=== PATIENT | female | born 1975 | race Two or more races ===

== ENCOUNTER 2024-08-12 09:01 | Outpatient (RCR) | payer OTHER, SELFPAY ==
--- NOTE | 2024-08-12 12:32 | CTCCONSULT_ITS ---
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 Referring physician. Ronny Malagon MD Reason for consultation. Patient with DCIS right breast with microinvasion status post right breast tylectomy right sentinel lymph node biopsy and doughnut mammoplasty referred to the cancer treatment center. 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 This revealed DCIS. ER/WA 90% positive. Patient underwent right breast tylectomy right sentinel lymph node biopsy and doing m ammoplasty performed by Dr. Ronny Malagon 05/26/2024. Right breast and additional margins obtained revea led low to intermediate nuclear grade ductal in situ at least 1.1 cm with associated microcalcificati ons. There was no invasive carcinoma identified. Final margins widely negative. 2 sentinel node ly mph nodes negative for mets. ER/WA positive.` [id number] patient now referred for adjuvant therapy at the cancer center. Patient had DCISonRT performed which gave her a score of 9.2 which is elevated r isk with 42% risk with either DCIS plus invasive in 10 years with surgery alone versus 15% with posto p radiation. Past Medical History: Denies other medical conditions Meds none Allergies none Family history. Maternal aunt age 50 and maternal cousin age 40 with breast CA both alive. 1 nephew of liver CA. 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 Review of Systems: Patient has some difficulty hearing ringing in the ears Physical Exam: General: Well-appearing lady no acute distress HEENT: Atraumatic no cephalic extraocular is intact no oral lesion no cervical or supraclavicular katarzyna nopathy CV: Right breast has well-healing surgical changes in the superior portion of breast. Lungs clear to auscultation heart regular rate and rhythm ABD: Soft and organomegaly or tenderness EXT: No signs of clubbing or edema Assessment:1. [id number] ER/WA positive right breast CA status post right breast tylectomy and 2 sentine l node removal 05/26/2024 2.DCISonRT reveals a high 9.2 indicating benefit from postop XRT. 3. Spoke to patient about 3-week radiation using modern 3D method with possible E boost to primary s ite depending on skin reaction. 4. Side effects explained and patient told to avoid during treatment 5. Dr. Webber medical oncologist will see patient shortly. 6. Thank you much for allowing me to evaluate and manage this patient Cc: Suzanne Malagon MD Electronically signed by: Bjorn Brown MD, DABR 08/12/2024 12:30 PM
--- NOTE | 2024-08-12 12:39 | CTCTXPLN_ITS ---
[facility] [place] [address] [place], [place] [address] Physician Clinical Treatment Planning Note Date of Service: 08/12/2024 Name: YING CAIN : 1975 The patient has agreed to proceed with Radiation therapy. Tests and supporting medical records were interpreted to assist in defining the tumor location and extent of disease. Further imaging will be necessary to contour and delineate the volume to which the XRT will be provided. A. Treatment Intent: Curative B. Modality: 15 MV C. Requested Technique: 3D D. Treatment Site: Right breast E. Critical structures to be contoured on plan: F. In order to accomplish this plan, I am ordering/Prescribing the followin. Simulations (s) will be performed to accomplish a reproducible treatment position, to determine op timal treatment portals/beam arrangements, to design beam modifying devices and verify treatment port als on patient prior to the commencement of Radiation Therapy. Right breast 2. Devices; for immobilization and beam shaping: Vac-Laura 3. CT Guidance for placement of XRT garcia Scan area: 4. Portal images Frequency: 5. Invivo transit dose measurement once per week on all VMAT patients. 6. Special Physics Consult Requested for: 7. Other requests: G. Dose Objectives: Curative Electronically signed by: Bjorn Brown M.D. 08/12/2024 12:36 PM
--- NOTE | 2024-08-12 12:41 | CTCTXPLNST_ITS ---
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 Pt Treatment Intent: curative palliative other: Stage: Procedure CPT # Ordered Spec. Procedure 36604 Holly Complex (set-up) 91865 R breast/ E boost 2 Holly Simple 48776 1 IMRT Plan 66155 MLC Devices VMAT 21889 Holly 3 D 28031 1 TRTMT dev Complex 17183 [place]lock/2 F/E boost 4 TRTMT dev simple 66322 Basic Mihir 48782 5 Special Dosimetry 93620 Spec Physics 53263 Port Films 78752 3 SRS Cranial/1FX 94589 SBR 5 FX or Less /ex: 5 = 5 fx 47055 IMRT Simple 93319 IMRT Complex 16655 IGRT 75878 Rad del com 6-10 27558 Rad del com 11- 03243 5005 20 Cont Med Physics 10144 4 Treatment Planning 45715 1 Rad del com 20 mev 09947 Rad del inter 01-27 71754 Rad del inter 07-08 31458 Rad del simple 6- 56157 Rad del simple 07-08 39674 Special Port Plan 03512 TRTMT dev inter 03083 Isodose Complex 48803 Isodose simple 02560 Resp Motion Mgmt Simulation 04255 Placement of Fiducial Markers 39262 Electronically Signed By: Bjorn Brown MD, DANIR 08/12/2024 12:38 PM
== END 2024-08-19 23:59 | disposition home or self-care (01) ==
LOC: SCTC 09:01
PROVIDERS: PCP Family Medicine; Referring Provider Surgery; Visit Provider Radiology Therapeutic Radiology
DX: D05.11 Intraductal carcinoma in situ of right breast (principal); Z17.0 Estrogen receptor positive status [ER+]; Z17.21 Progesterone receptor positive status; Z90.11 Acquired absence of right breast and nipple
CPT/HCPCS: 99213; G0463

== ENCOUNTER 2024-09-19 07:40 | Outpatient (RCR) | payer OTHER, SELFPAY ==
--- NOTE | 2024-09-09 11:41 | CTCSNOTE_ITS ---
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 (C) CT slices included right breast (D) 3D Will be needed for maximum sparing of adjacent normal critical structures. (E) Patient tolerated the simulation well and left the room in good condition. Electronically signed by: Bjorn Brown MD, DABR 09/09/2024 11:39 AM
--- NOTE | 2024-09-16 10:49 | CTCCONSULT_ITS ---
Patient: YING IGNACIO : 1975 MR#: [id number] Page 2 of 2 CONSULTATION NOTE DATE OF CONSULTATION: 09/16/2024 NAME: YING IGNACIO ACCOUNT: [id number] : 1975 AGE: 49 REFERRING PHYSICIAN: Suzanne Castro MD PRIMARY PHYSICIAN: Suzanne Castro MD REASON FOR VISIT: Establishing care for DCIS ONCOLOGY HISTORY: DIAGNOSIS: Intraductal carcinoma in situ of right breast [ICD10] D05.11 DATE OF DIAGNOSIS: 04/30/2024 STAGE/TNM: Stage 0 TREATMENT HISTORY: No treatment Care?Plan Start?Date Cycle Day Intent HISTORY OF PRESENT ILLNESS: 49-year-old female with a new diagnosis of DCIS. Patient have 3 children. Patient is sexually active and do not want to start treatment where she has to use contraceptive. Patient is trying to get . Patient exercises every day. No family or personal history of cancer before this diagnosis of DCIS. OTHER MEDICAL HISTORY/CONDITIONS: DCIS?Right?breast?-?DX?05/26/24 COVID Right breast tylectomy with u/s guideed wire localization; right sentinel lymph node biopsy; donut mammoplasty - 05/26/24 d and c - Age 23 FAMILY HISTORY: Children:?Nephew?-?Liver?-?dx?age?3 Cancer History:?Mat aunt - breast - dx 45; Mat cousin - breast - dx 39 SOCIAL HISTORY: Occupational?History:?[employer] Education?Level:?Attended College, did not graduate Marital?Status:? 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 Collagen Skin Renewal - 30-833.3 mg 1 tab Daily 2. CoQ10 - 10 mg 1 Capsule Daily 3. folic acid - 0.8 mg 1 Capsule Daily 4. 1 + 1 - 65-1 mg 1 tab Daily 5. turmeric - 400 mg 1 Capsule Daily 6. vitamin E - 400 unit 1 tab Daily?Palabra Meds? Medications Last Reconciled by Maricel Gonzalez RN on 09/16/2024 ALLERGIES: No Known Drug Allergies REVIEW OF SYSTEMS: A complete 14-point review of systems was performed and is negative except as noted in interval history. PHYSICAL EXAMINATION: VITAL SIGNS: Temperature?97.5, B/P?131/83, Height?64?inches, Oxygen?Saturation?97% Weight?150?lbs PAIN: 0 - No pain ECOG Performance Status: 0 - Asymptomatic and fully active GENERAL APPEARANCE: Appears well, in no apparent distress, appropriately interactive. HEENT: Normocephalic, no temporal wasting, normal conjunctiva, no scleral icterus, normal hearing, lips without lesions, neck normal range of motion. CARDIOVASCULAR: Not assessed. PULMONARY: Normal respiratory effort, no respiratory distress or use of accessory muscles, speaking in full sentences, no tachypnea. EXTREMITIES: No pedal edema or cyanosis. SKIN: Normal skin appearance. NEUROLOGIC: Alert and oriented x4. PSHYCHIATRIC: Appropriate affect, mood normal, behavior normal, intact thought and speech. Both breast without any palpable lesions. Surgical site clean bilateral axilla without any lesions. Noted black spots on left breast. Patient is requesting dermatology follow-up for that LABORATORY DATA: I have personally reviewed and interpreted each of Ms. Ignacio?s relevant lab tests, abnormal findings are below: Date ASSESSMENT/PLAN: #1 right breast DCIS Patient with a diagnosis of DCIS involving 10% of biopsy tissue. It was grade 2 ER/AZ positive Patient do not want to take antiendocrine therapy with the tamoxifen or anastrozole or ovarian suppression She wants to continue her active sex life and want to get Discussed effects of anti and endocrine therapy and reduction of recurrent breast cancer If patient want to start antiendocrine therapy she can reach me Antiendocrine therapies are not indicated without contraception and are teratogenic Will continue to monitor patient Advised to be compliant with mammograms Take calcium and vitamin D Already scheduled for radiation CBC CMP and return in 6 months RETURN TO CLINIC: 6 months I will see her back in the clinic in 6 month. BILLING AND COMPLIANCE: I reviewed external records from providers outside my specialty as summarized above. I spent a total of 50 minutes on this patient?s care on the day of their visit excluding time spent related to any billed procedures. This time includes time spent with the patient as well as time spent documenting in the medical record, reviewing patients records and tests, obtaining history, placing orders, communicating with other healthcare professionals, counseling the patient, family or caregiver, and/or care coordination for the diagnoses above. Electronically Signed by: Brodie Webber MD T: 10:47 AM CC: PCP: Suzanne Castro Referring: Suzanne Castro This document was completed utilizing speech recognition software. Grammatical errors, random word insertions, pronoun errors, and incomplete sentences are an occasional consequence of this system due to software limitations, ambient noise, and hardware issues. Any formal questions or concerns about the content, text or information contained within the body of this dictation should be directly addressed to the provider for clarification.
== END 2024-09-19 23:59 | disposition home or self-care (01) ==
LOC: SCTC 07:40
PROVIDERS: PCP Family Medicine; Referring Provider Family Medicine; Visit Provider Internal Medicine Hematology & Oncology
DX: Z51.0 Encounter for antineoplastic radiation therapy (principal); D05.11 Intraductal carcinoma in situ of right breast; Z17.0 Estrogen receptor positive status [ER+]; Z17.21 Progesterone receptor positive status
CPT/HCPCS: 77014; 77280; 77290; 77295; 77300; 77334; 77412; 99213; G0463

== ENCOUNTER 2024-10-16 07:43 | Outpatient (RCR) | payer OTHER, SELFPAY ==
--- NOTE | 2024-09-22 08:47 | CTCTRTNOTE_ITS ---
[facility] [address] [place], [place] [address] Weekly Management Date: 09/22/2024 ?? Name: YING CAIN : 1975 A. Patient is currently at 1068 cGy. B. Patient is tolerating treatment well. C. Resume radiation therapy. Has between 2 and 3 weeks of radiation left. Electronically signed by: Bjorn Brown M.D. 09/22/2024 8:45 AM
== END 2024-10-17 23:59 | disposition home or self-care (01) ==
LOC: SCTC 07:43
PROVIDERS: PCP Family Medicine; Referring Provider Family Medicine; Visit Provider Internal Medicine Hematology & Oncology
DX: Z51.0 Encounter for antineoplastic radiation therapy (principal); D05.11 Intraductal carcinoma in situ of right breast; Z17.0 Estrogen receptor positive status [ER+]; Z17.21 Progesterone receptor positive status
CPT/HCPCS: 77290; 77300; 77332; 77336; 77412; 77417

== ENCOUNTER 2024-10-28 09:02 | Outpatient (RCR) | payer OTHER, SELFPAY | END 2024-11-17 23:59 | disposition home or self-care (01) | LOC: SCTC 09:02 | PROVIDERS: PCP Family Medicine; Referring Provider Family Medicine; Visit Provider Radiology Therapeutic Radiology | DX: D05.11 Intraductal carcinoma in situ of right breast (principal); Z92.3 Personal history of irradiation | CPT/HCPCS: 99212; G0463 ==

== ENCOUNTER → 2025-06-01 | Outpatient (CLI) | payer OTHER, SELFPAY ==
[2025-06-01 17:32] LABS: Basophils # (Auto) 0.0 Thou/mm3 (0.0-0.2); Basophils % (Auto) 0 % (0-2.5); Eosinophils # (Auto) 0.2 Thou/mm3 (0.0-0.5); Eosinophils % (Auto) 2 % (0-10); Hematocrit 38.5 % (36.0-46.0); Hemoglobin 13.1 g/dL (12.0-16.0); Immature Granulocytes Auto 0.03 Thou/mm3 (0.00-0.00); Lymphocytes # (Auto) 1.5 Thou/mm3 (1.0-4.8); Lymphocytes % (Auto) 20 % (10-50); Mean Corpuscular HGB Conc 34.0 g/dl (31.0-37.0); Mean Corpuscular Hemoglobin 32.2 pg (25.0-35.0); Mean Corpuscular Volume 95 fL (80-100); Monocytes # (Auto) 0.6 Thou/mm3 (0.0-0.8); Monocytes % (Auto) 8 % (0-12); Neutrophils # (Auto) 5.1 Thou/mm3 (1.8-7.7); Neutrophils % (Auto) 69 % (37-80); Nucleated Red Blood Cell # 0.00 Thou/mm3 (0.00-0.00); Nucleated Red Blood Cell % 0 /100 WBC (0); Platelet Count 325 Thou/mm3 (140-440); RDW Standard Deviation 41.7 fL (36.4-46.3); Red Blood Count 4.07 Miln/mm3 (4.00-5.20); White Blood Count 7.3 Thou/mm3 (3.6-11.0)
[2025-06-01 17:57] LABS: Alanine Aminotransferase 20 U/L (10-49); Albumin, Serum 4.2 gm/dL (3.5-5.0); Albumin/Globulin Ratio 1.6 (1.2-2.2); Alkaline Phosphatase 102 U/L (46-116); Anion Gap 9 (7-16); Aspartate Amino Transferase 22 U/L (0-34); BUN/Creatinine Ratio 14 Ratio (12-20); Bilirubin,Total 0.2 mg/dL (0.3-1.2); Blood Urea Nitrogen 11 mg/dL (9-23); Calcium 9.3 mg/dL (8.3-10.6); Calcium (Corrected) 9.3 mg/dL (8.5-10.1); Carbon Dioxide 28.9 mMol/L (20.0-31.0); Chloride 104 mMol/L (98-107); Creatinine (Component) 0.8 mg/dL (0.6-1.3); Globulin 2.7 gm/dL (2.3-3.5); Glucose 130 mg/dL (74-106); Osmolality,Calculated 284 (275-295); Potassium 3.6 mMol/L (3.4-5.1); Sodium 142 mMol/L (136-145); Total Protein 6.9 gm/dL (5.7-8.2); eGFR > 60 See Note
== END | disposition home or self-care (01) ==
LOC: SCTO 16:10
PROVIDERS: PCP Family Medicine; Referring Provider Internal Medicine Hematology & Oncology; Visit Provider Internal Medicine Hematology & Oncology
DX: D05.11 Intraductal carcinoma in situ of right breast (principal)
CPT/HCPCS: 36415; 80053; 85025

== ENCOUNTER 2025-06-02 14:58 | Outpatient (RCR) | payer OTHER, SELFPAY ==
--- NOTE | 2025-06-15 01:01 | CTCFLWUP_ITS ---
Patient: YING CAIN : 1975 Page 2 of 4 FOLLOW UP NOTE DATE OF SERVICE: 06/02/2025 NAME: YING CAIN ACCOUNT: [id number] : 1975 AGE: 50 INTERVAL HISTORY: Premenopausal with DCIS here for follow-up. Patient completed radiation. Patient is not on any antiendocrine therapy. Patient want to conceive child. ONCOLOGY HISTORY: DIAGNOSIS: Intraductal carcinoma in situ of right breast [ICD10] D05.11 DATE OF DIAGNOSIS: 04/30/2024 STAGE/TNM: Stage 0 TREATMENT HISTORY: Care?Plan Start?Date Cycle Day Intent HISTORY OF PRESENT ILLNESS: 50-year-old female with a new diagnosis of DCIS. Patient have 3 children. Patient is sexually active and do not want to start treatment where she has to use contraceptive. Patient is trying to get . Patient exercises every day. No family or personal history of cancer before this diagnosis of DCIS. OTHER MEDICAL HISTORY/CONDITIONS: DCIS?Right?breast?-?DX?05/26/24 COVID Right breast tylectomy with u/s guideed wire localization; right sentinel lymph node biopsy; donut mammoplasty - 05/26/24 d and c - Age 23 FAMILY HISTORY: Children:?Nephew?-?Liver?-?dx?age?3 Cancer History:?Mat aunt - breast - dx 45; Mat cousin - breast - dx 39 SOCIAL HISTORY: Occupational?History:?[employer] Education?Level:?Attended College, did not graduate Marital?Status:? 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 Collagen Skin Renewal - 30-833.3 mg 1 tab Daily 2. CoQ10 - 10 mg 1 Capsule Daily 3. folic acid - 0.8 mg 1 Capsule Daily 4. 1 + 1 - 65-1 mg 1 tab Daily 5. turmeric - 400 mg 1 Capsule Daily 6. vitamin E - 400 unit 1 tab Daily Medications Last Reconciled by Dione Colon MD on 06/02/2025 ALLERGIES: No Known Drug Allergies REVIEW OF SYSTEMS: A complete 14-point review of systems was performed and is negative except as noted in interval history. PHYSICAL EXAMINATION: VITAL SIGNS: Temperature?98, B/P?136/73, Oxygen?Saturation?98% Weight?150?lbs PAIN: 0 - No pain ECOG Performance Status: 0 - Asymptomatic and fully active GENERAL APPEARANCE: Appears well, in no apparent distress, appropriately interactive. HEENT: Normocephalic, no temporal wasting, normal conjunctiva, no scleral icterus, normal hearing, lips without lesions, neck normal range of motion. CARDIOVASCULAR: Not assessed. PULMONARY: Normal respiratory effort, no respiratory distress or use of accessory muscles, speaking in full sentences, no tachypnea. EXTREMITIES: No pedal edema or cyanosis. SKIN: Normal skin appearance. NEUROLOGIC: Alert and oriented x4. PSHYCHIATRIC: Appropriate affect, mood normal, behavior normal, intact thought and speech. Both breast without any palpable lesions. Surgical site clean bilateral axilla without any lesions. Noted black spots on left breast. Patient is requesting dermatology follow-up for that LABORATORY DATA: I have personally reviewed and interpreted each of the patient?s relevant lab tests, abnormal findings are below: Date 06/01/25 ??WHITE?BLOOD?COUNT?(Thou/mm3) 7.3 ??RED?BLOOD?COUNT?(Miln/mm3) 4.07 ??HEMOGLOBIN?(gm/dl) 13.1 ??HEMATOCRIT?(%) 38.5 ??PLATELET?COUNT?(Thou/mm3) 325 ??NEUTROPHILS?%,?AUTO?(%) 69 ??LYMPH?%,?AUTO?(%) 20 ??NEUTROPHILS,?AUTO?(Thou/mm3) 5.1 ??GLUCOSE,RANDOM?(mg/dL) 130?H ??BLOOD?UREA?NITROGEN?(mg/dL) 11 ??CREATININE?(mg/dL) 0.80 ??SODIUM?(mmol/L) 142 ??POTASSIUM?(mmol/L) 3.6 ??CHLORIDE?(mmol/L) 104 ??CrCl?(CandG)?(ml/min) 86.00 ??AST/SGOT?(Unit/L) 22 ??ALT/SGPT?(Unit/L) 20 ??ALKALINE?PHOSPHATASE?(Unit/L) 102 ??BILIRUBIN,?TOTAL?(mg/dL) 0.2?L ??PROTEIN?TOTAL?(gm/dl) 6.9 ??ALBUMIN,?SERUM?(gm/dl) 4.2 ??GLOBULIN?(gm/dl) 2.7 ??ALBUMIN/GLOBULIN?RATIO 1.6 ??CALCIUM,?SERUM?(mg/dL) 9.3 ??CALCIUM?SERUM?(CORRECTED)?(mg/dL) 9.3 ASSESSMENT/PLAN: #1 right breast DCIS Patient with a diagnosis of DCIS involving 10% of biopsy tissue. It was grade 2 ER/[place] positive Patient do not want to take antiendocrine therapy with the tamoxifen or anastrozole or ovarian suppression She wants to continue her active sex life and want to get Discussed effects of anti and endocrine therapy and reduction of recurrent breast cancer If patient want to start antiendocrine therapy she can reach me Antiendocrine therapies are not indicated without contraception and are teratogenic Will continue to monitor patient Advised to be compliant with mammograms Take calcium and vitamin D Already scheduled for radiation CBC CMP and return in 6 months ORDERS: Order # Description [id number] CBC with Auto Diff + Comprehensive Metabolic Panel - 12 [id number] Estradiol + Gonadotropin (Fsh) + Gonadotropin; Luteinizing Hormone (Lh) [id number] Follow Up 4 Week RETURN TO CLINIC: I reviewed the diagnosis, prognosis, and recommended treatment/procedure options with the patient (and/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 We also discussed the option of no treatment and the possibility of clinical trial participation, if applicable. All questions were addressed, and they demonstrated understanding. They provided informed consent to proceed with the proposed plan of care. BILLING AND COMPLIANCE: I reviewed external records from providers outside my specialty as summarized above. I spent a total of 50 minutes on this patient?s care on the day of their visit excluding time spent related to any billed procedures. This time includes time spent with the patient as well as time spent documenting in the medical record, reviewing patients records and tests, obtaining history, placing orders, communicating with other healthcare professionals, counseling the patient, family or caregiver, and/or care coordination for the diagnoses above. Electronically Signed by: Brodie Webber MD T: 12:58 AM CC: PCP: Brodie Webber Referring: Brodie Webber This document was completed utilizing speech recognition software. Grammatical errors, random word insertions, pronoun errors, and incomplete sentences are an occasional consequence of this system due to software limitations, ambient noise, and hardware issues. Any formal questions or concerns about the content, text or information contained within the body of this dictation should be directly addressed to the provider for clarification.
== END 2025-06-19 23:59 | disposition home or self-care (01) ==
LOC: SCTC 14:58
PROVIDERS: PCP Family Medicine; Referring Provider Internal Medicine Hematology & Oncology; Visit Provider Internal Medicine Hematology & Oncology
DX: D05.11 Intraductal carcinoma in situ of right breast (principal); Z17.0 Estrogen receptor positive status [ER+]; Z17.21 Progesterone receptor positive status
CPT/HCPCS: 99212; G0463